=== PATIENT | male | born 1955 | race Caucasian/White ===

== ENCOUNTER 2016-05-01 12:05 | Inpatient (IN) | payer OTHER ==
[~2016-05-01] VITALS: Ht 167.6 cm; Wt 90.0 kg
[~2016-05-01 12:05] MED LIST: ASPI81TA21 PO; ATV/1 PO; Alfalfa PO; FISHOIL PO; HYDR1TAB2 PO; MULTTAB58 PO; ONDA4TAB7 SL; ROSU5TAB PO
[2016-05-01] MEDS ORDERED: SODIUM CHLORIDE 0.9% 1000ML 1,000 ML IV SCH (12:36)
[2016-05-01] MEDS ORDERED: LABETALOL HCL IV 5 MG/ML 20ML IV STA (12:36)
--- NOTE | 2016-05-01 12:43 | EMERGENCY ROOM VISIT NOTE ---
History Report prepared by Marly: Aquiles Queen Under the Supervision of: Dr. Rachel Sanchez M.D. First contact with patient: 12:33 Chief Complaint: CONFUSION Stated Complaint: CONFUSION History of Present Illness The patient is a 61 year old male who presents to the Emergency Room with complaints of acute confusion that occurred earlier this morning. The patient's confusion appears to mostly have resolved. The patient was at baseline when he woke up this morning. He exercised and ate breakfast as usual. After he got out of the shower this morning he became confused. He notes that he could not remember that his birthday was yesterday. The patient had some alcohol last night but not in excess. Friends of the patient that picked him up this morning noted to his that the patient appeared confused. The patient has a history of hypertension which is usually controlled with medication. The patient started 10 mg Lisinopril almost one year ago. The patient denies one-sided weakness or numbness, speech difficulty, facial drooping, trouble ambulating, headaches, chest pain, or shortness of breath. The patient has a history of migraines and notes that his symptoms are different. The patient follows up with Dr. Galvez (Family Medicine). He is not a smoker. He has a family history of stroke. Source of History: patient, spouse/significant other Onset: this morning Position: other (global) Quality: other (confused) Timing: resolved Associated Symptoms: No SOB, No chest pain, No headache, No numbness, No weakness Review of Systems See HPI for pertinent positives & negatives. A total of 10 systems reviewed and were otherwise negative. Past Medical & Surgical Medical Problems: (1) Altered mental status (2) History of malignant melanoma of skin (3) HTN (hypertension) (4) Hyperlipidemia (5) Hypertensive urgency (6) Kidney stone (7) Migraine Surgical Problems: (1) H/O colonoscopy (2) H/O melanoma excision Family History Stroke Social History Smoking Status: Never Smoker Marital Status: Housing Status: lives with family Occupation Status: employed Current/Historical Medications Scheduled Acetaminophen/Diphenhydramine (Tylenol Pm), 1 TAB PO HS [place] (Whitley), 1 TAB PO DAILY Allopurinol (Zyloprim), 1 TAB PO DAILY Aspirin Enteric Coated (Ecotrin Or Generic), 81 MG PO DAILY Cholecalciferol (Vitamin D), 1 TAB PO DAILY Fish Oil ([place]-3), 1 CAP PO DAILY Lisinopril (Lisinopril), 1 TAB PO DAILY Multiple Vitamin (Multivitamin), 1 TAB PO DAILY Rosuvastatin Calcium (Crestor), 10 MG PO Q2D Allergies Coded Allergies: No Known Allergies (Unverified , 02/04/12) Physical Exam Vital Signs Date Time Temp Pulse Resp B/P Pulse Ox O2 Delivery O2 Flow Rate FiO2 05/01/16 13:32 63 16 160/77 94 05/01/16 13:30 61 16 158/90 96 05/01/16 13:17 61 18 94 05/01/16 13:16 159/80 05/01/16 13:10 62 18 168/102 99 05/01/16 13:08 168/102 05/01/16 12:57 166/99 05/01/16 12:55 58 24 95 05/01/16 12:52 59 05/01/16 12:52 174/97 05/01/16 12:50 59 19 98 05/01/16 12:41 247/121 05/01/16 12:35 98 Room Air 05/01/16 12:08 36.4 99 20 231/132 98 Room Air Physical Exam Vital signs reviewed. General: Well-appearing male, in no significant distress. HEENT: No scleral icterus, PERRLA, neck supple. Atraumatic. Cardiovascular: Regular rate and rhythm, no extra sounds. Pulmonary: Clear to auscultation bilaterally, normal work of breathing. Abdomen: Soft, nontender, nondistended, positive bowel sounds. Musculoskeletal: Atraumatic, no peripheral edema. Neurologic: Patient awake alert and oriented x 3, full strength in all 4 extremities. Cranial nerves 2 through 12 grossly intact. Cerebellar exam intact. Skin: Warm, dry, no rash Medical Decision & Procedures ER Provider Diagnostic Interpretation: X-ray results as stated below per my interpretation and radiologist interpretation. Other radiology results as stated below per my review and radiologist interpretation: CHEST ONE VIEW PORTABLE CLINICAL HISTORY: CVS sx, HTN dyspnea COMPARISON STUDY: 02/03/2012 FINDINGS: The bones soft tissues and hemidiaphragms are normal. The cardiomediastinal silhouette is normal. The lungs are clear. The pulmonary vasculature is normal. IMPRESSION: Negative chest. Electronically signed by: Denis Montalvo M.D. 05/01/2016 1:01 PM Dictated Date/Time: 05/01/2016 1:[address] CT DOSE: 537.48 mGy.cm HISTORY: Mental status change Stroke TECHNIQUE: Multiaxial CT images of the head were performed without the use of intravenous contrast. Comparison: None. Findings: The paranasal sinuses and mastoid air cells are clear. The calvarium and skull base are intact. The ventricles and sulci are within normal limits. There is no mass, hematoma, midline shift, or acute infarct. Impression: No acute intracranial abnormality. Electronically signed by: Denis Montalvo M.D. 05/01/2016 1:13 PM Dictated Date/Time: 05/01/2016 1:12 PM Laboratory Results 05/01/16 12:30 Red Blood Count 4.69, Mean Corpuscular Volume 91.9, Mean Corpuscular Hemoglobin 32.8, Mean Corpuscular Hemoglobin Concent 35.7, Mean Platelet Volume 10.0, Neutrophils (%) (Auto) 54.9, Lymphocytes (%) (Auto) 35.8, Monocytes (%) (Auto) 7.6, Eosinophils (%) (Auto) 1.3, Basophils (%) (Auto) 0.4, Neutrophils # (Auto) 2.96, Lymphocytes # (Auto) 1.93, Monocytes # (Auto) 0.41, Eosinophils # (Auto) 0.07, Basophils # (Auto) 0.02 Test 05/01/16 12:30 05/01/16 12:45 05/01/16 12:52 White Blood Count 5.39 K/uL (4.8-10.8) Red Blood Count 4.69 M/uL (4.7-6.1) Hemoglobin 15.4 g/dL (14.0-18.0) Hematocrit 43.1 % (42-52) Mean Corpuscular Volume 91.9 fL (80-100) Mean Corpuscular Hemoglobin 32.8 pg (25-34) Mean Corpuscular Hemoglobin Concent 35.7 g/dl (32-36) Platelet Count 210 K/uL (130-400) Mean Platelet Volume 10.0 fL (7.4-10.4) Neutrophils (%) (Auto) 54.9 % Lymphocytes (%) (Auto) 35.8 % Monocytes (%) (Auto) 7.6 % Eosinophils (%) (Auto) 1.3 % Basophils (%) (Auto) 0.4 % Neutrophils # (Auto) 2.96 K/uL (1.4-6.5) Lymphocytes # (Auto) 1.93 K/uL (1.2-3.4) Monocytes # (Auto) 0.41 K/uL (0.11-0.59) Eosinophils # (Auto) 0.07 K/uL (0-0.5) Basophils # (Auto) 0.02 K/uL (0-0.2) RDW Standard Deviation 41.7 fL (36.4-46.3) RDW Coefficient of Variation 12.4 % (11.5-14.5) Immature Granulocyte % (Auto) 0.0 % Immature Granulocyte # (Auto) 0.00 K/uL (0.00-0.02) Prothrombin Time 10.4 SECONDS (9.0-12.0) Prothromb Time International Ratio 1.0 (0.9-1.1) Activated Partial Thromboplast Time 25.3 SECONDS (21.0-31.0) Partial Thromboplastin Ratio 1.0 Total Creatine Kinase 206 U/L (39-308) Creatine Kinase MB 3.9 ng/ml (0.5-3.6) Creatine Kinase MB Ratio 1.9 (0-3.0) Troponin I < 0.015 ng/ml (0-0.045) Urine Opiates Screen NEG (NEG) Urine Methadone, Qualitative NEG (NEG) Urine Barbiturates NEG (NEG) Urine Phencyclidine (PCP) Level NEG (NEG) Ur Amphetamine/Methamphetamine NEG (NEG) MDMA (Ecstasy) Screen NEG (NEG) Urine Benzodiazepines Screen NEG (NEG) Urine Cocaine Metabolite NEG (NEG) Urine Marijuana (THC) NEG (NEG) Bedside Prothrombin Time INR 1.0 (0.9-1.1) Bedside Glucose 108 mg/dl (70-99) Laboratory results per my review. Medications Administered Medications (Trade) Dose Ordered Sig/Tatianna Route Start Time Stop Time Status Last Admin Dose Admin Labetalol HCl 10 mg 10 mg NOW STAT IV 05/01/16 12:36 05/01/16 12:42 DC 05/01/16 12:49 10 MG Sodium Chloride (Nss 1000ml) 1,000 ml @ 75 mls/hr [id number] IV 05/01/16 12:36 05/01/16 14:59 DC 05/01/16 12:50 75 MLS/HR ECG Indication: altered mental status Rate (beats per minute): 66 Rhythm: normal sinus Findings: no acute ischemic change, no ectopy ED Course 1235: Past medical records reviewed. The patient was evaluated in room C2. A complete history and physical examination was performed. 1236: NSS 1000 ml @ 75 mls/hr, Normodyne 10 mg IV. 1332: Spoke with Karina Rodgers PA-C, [facility]. The patient will be evaluated. Medical Decision Differential diagnosis: Etiologies such as metabolic, infection, hypoglycemia, electrolyte abnormalities , cardiac sources, intracerebral event, toxicologic, neurologic, as well as others were entertained. This patient was evaluated and appeared to be in no significant distress. IV access was obtained and laboratory work was drawn. The patient was placed on the manager advanced and was found to be in a normal sinus rhythm. EKG was performed and reveals a normal sinus rhythm. There is no evidence of acute ischemia. Chest x-ray is clear. Head CT is clear. I suspect the patient's symptoms are related to a hypertensive urgency. He did respond well to 10 mg of IV labetalol. Given the patient's symptoms, it is in his best interest to be evaluated by the hospitalist service for further management. He will likely need a full stroke evaluation. Patient is aware of the plan and agrees. Consults Time Called: 1325 Consulting Physician: [facility]C, [facility] Returned Call: [phone]: Spoke with Karina Rodgers PA-C, [facility]. The patient will be evaluated Impression Primary Impression: Hypertensive urgency Scribe Attestation The scribe's documentation has been prepared under my direction and personally reviewed by me in its entirety. I confirm that the note above accurately reflects all work, treatment, procedures, and medical decision making performed by me. Departure Information Dispostion Being Evaluated By Hospitalist Prescriptions Lisinopril (Lisinopril) 40 Mg Tab 1 TAB PO DAILY for 30 Days, #30 TABS 2 Refills Prov: Alex Perry MD 05/02/16 Referrals Jose Galvez M.D. (PCP) Patient Instructions [facility]
[2016-05-01 12:53] LABS: BASO % 0.4 %; BASO ABS # 0.02 K/uL (0-0.2); COMPLETE YES; EOS % 1.3 %; HEMATOCRIT 43.1 % (42-52); LYMPH % 35.8 %; LYMPH ABS # 1.93 K/uL (1.2-3.4); MEAN CELL VOLUME 91.9 fL (80-100); MEAN CORPUSCULAR HEMOGLOBIN 32.8 pg (25-34); MEAN CORPUSCULAR HGB CONC 35.7 g/dl (32-36); MONO % 7.6 %; NEUT % 54.9 %; PLATELET COUNT 210 K/uL (130-400); RED BLOOD COUNT 4.69 M/uL (4.7-6.1); WHITE BLOOD COUNT 5.39 K/uL (4.8-10.8)
--- NOTE | 2016-05-01 13:02 | DIAGNOSTIC IMAGING REPORT ---
CHEST ONE VIEW PORTABLE CLINICAL HISTORY: CVS sx, HTN dyspnea COMPARISON STUDY: 02/03/2012 FINDINGS: The bones soft tissues and hemidiaphragms are normal. The cardiomediastinal silhouette is normal. The lungs are clear. The pulmonary vasculature is normal. IMPRESSION: Negative chest. Electronically signed by: Denis Montalvo M.D. 05/01/2016 1:01 PM Dictated Date/Time: 05/01/2016 1:01 PM
[2016-05-01 13:06] LABS: PROTHROMBIN TIME (PATIENT) 10.4 SECONDS (9.0-12.0)
[2016-05-01 13:13] LABS: BLOOD UREA NITROGEN 18 mg/dl (7-18); BUN/CREATININE RATIO 13.9 (10-20); CALCIUM 9.3 mg/dl (8.5-10.1); CARBON DIOXIDE 26 mmol/L (21-32); CHLORIDE 105 mmol/L (98-107); GLUCOSE 106 mg/dl (70-99); POTASSIUM 4.1 mmol/L (3.5-5.1); SODIUM 141 mmol/L (136-145)
--- NOTE | 2016-05-01 13:14 | DIAGNOSTIC IMAGING REPORT ---
HEAD CT NONCONTRAST CT DOSE: 537.48 mGy.cm HISTORY: Mental status change Stroke TECHNIQUE: Multiaxial CT images of the head were performed without the use of intravenous contrast. Comparison: None. Findings: The paranasal sinuses and mastoid air cells are clear. The calvarium and skull base are intact. The ventricles and sulci are within normal limits. There is no mass, hematoma, midline shift, or acute infarct. Impression: No acute intracranial abnormality. Electronically signed by: Denis Montalvo M.D. 05/01/2016 1:13 PM Dictated Date/Time: 05/01/2016 1:12 PM
[2016-05-01 13:18] LABS: CKMB/CK RATIO 1.9 (0-3.0)
[2016-05-01 13:19] LABS: BENZODIAZEPINE, URINE NEG (NEG); COCAINE,URINE NEG (NEG); PHENCYCLIDINE, URINE NEG (NEG)
[2016-05-01] MEDS ORDERED: LISI-461 PO (13:19)
[2016-05-01] MEDS ORDERED: OMEG10007 PO (13:19)
[2016-05-01] MEDS ORDERED: ALLO300T2 PO (13:19)
[2016-05-01 14:00] VITALS: O2SAT 95; Ht 167.6 cm; Wt 90.0 kg
[2016-05-01 14:17] VITALS: O2SAT 95
[2016-05-01] MEDS ORDERED: CHOL100010 PO (14:21)
[2016-05-01] MEDS ORDERED: SILD100T PO (14:21)
[2016-05-01] MEDS ORDERED: DIPH-437 PO (14:21)
[2016-05-01] MEDS ORDERED: ALFA250T PO (14:21)
[2016-05-01] MEDS ORDERED: CRS10 PO (14:21)
[2016-05-01 15:02] VITALS: BP 169/87; PULSE 58; TEMP 36.6; O2SAT 98
--- NOTE | 2016-05-01 15:05 | History and Physical ---
History & Physical Date & Time of Service: May 01, 2016 at 14:22 Chief Complaint: Confusion Primary Care Physician: Jose Galvez M.D. History of Present Illness Source: patient, clinic records This is a 61 year old male with PMH of hypertension, dyslipidemia, and other problems listed below who presents to the ED with episode of confusion. Patient states last night he had 3 drinks of alcohol instead of his usual 2 and woke up feeling normal this morning. He exercised at the gym and then took a shower and when he was getting out of the shower around 10 or 10:30 am he became confused which lasted 15-30 minutes. He describes the confusion as an "out of body experience" and states he did not remember it was his birthday yesterday until he looked at his phone and saw text messages. He states he could walk and speak normally during the episode. He could recognize his surroundings. He called his who was at an event. He then called a friend to bring him to the ER. The friend told him he sounded abnormal on the phone (unclear whether it was a speech abnormality or that he sounded confused). Symptoms are resolved now and he feels back to baseline. When patient arrived to the ER his blood pressure was as high as 240s systolic and 130s diastolic. Patient was given labetalol 10 mg IV and BP is currently improved to 160/95. He usually is compliant with lisinopril 10 mg which he has been taking for 9-10 months. He is not sure if he took the lisinopril or aspirin this morning because he usually takes them after showering, but today was confused. He states his plans to check his pill box. He has not checked his BP recently. Last clinic visit was May 2015. 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 He reports low sodium diet and exercises daily. He is not on any OTC meds which would affect his BP. He has not been in any pain. He denies recent head trauma, headache, dizziness, syncope, diplopia, blurry vision, speech difficulty, focal weakness or numbness, chest pain, SOB. Denies prior similar episode. Denies hx of TIA, CVA, or seizure. Past Medical/Surgical History Medical Problems: (1) History of malignant melanoma of skin Status: Chronic (2) History of renal stone Status: Chronic (3) HTN (hypertension) Status: Chronic (4) Hyperlipidemia Status: Chronic (5) Kidney stone Status: Chronic (6) Migraine Status: Resolved Surgical Problems: (1) H/O colonoscopy Permanent Comment: 05/27/15 normal Status: Chronic (2) H/O melanoma excision Status: Chronic Family History FH: CAD (coronary artery disease) FATHER FH: cancer FATHER (bladder CA) Hypertension FATHER BROTHER Stroke Social History Smoking Status: Never Smoker Alcohol Use: typically 2 drinks daily. had 3 drinks yesterday on his birthday. Drug Use: none Marital Status: Housing status: lives with family, lives with significant other Occupational Status: employed Immunizations History of Influenza Vaccine: No History of Tetanus Vaccine?: Yes History of Pneumococcal: No History of Hepatitis B Vaccine: Yes Multi-Drug Resistant Organisms History of MDRO: No Allergies Coded Allergies: No Known Allergies (Unverified , 02/04/12) Home Medications Scheduled Acetaminophen/Diphenhydramine (Tylenol Pm), 1 TAB PO HS [place] ([place]), 1 TAB PO DAILY Allopurinol (Zyloprim), 1 TAB PO DAILY Aspirin Enteric Coated (Ecotrin Or Generic), 81 MG PO DAILY Cholecalciferol (Vitamin D), 1 TAB PO DAILY Fish Oil ([place]-3), 1 CAP PO DAILY Lisinopril (Zestril), 10 MG PO DAILY Multiple Vitamin (Multivitamin), 1 TAB PO DAILY Rosuvastatin Calcium (Crestor), 10 MG PO Q2D Scheduled PRN Sildenafil Citrate (Viagra), 50 MG PO UD PRN for intercourse Review of Systems Constitutional: No chills, No fever Eyes: No diplopia, No worsening of vision ENT: No nasal symptoms Respiratory: No cough, No shortness of breath Cardiovascular: No chest pain, No edema Abdomen: No diarrhea, No nausea, No vomiting Musculoskeletal: No calf pain Genitourinary - Male: No dysuria, No urinary frequency Neurologic: + memory loss, No numbness/tingling, No weakness Psychiatric: + anxiety Integumentary: No new/changing skin lesions Physical Exam Vital Signs Date Time Temp Pulse Resp B/P Pulse Ox O2 Delivery O2 Flow Rate FiO2 05/01/16 13:30 61 16 158/90 96 05/01/16 13:10 62 18 168/102 99 05/01/16 12:57 166/99 05/01/16 12:55 58 24 95 05/01/16 12:52 59 05/01/16 12:52 174/97 05/01/16 12:50 59 19 98 05/01/16 12:41 247/121 05/01/16 12:35 98 Room Air 05/01/16 12:08 36.4 99 20 231/132 98 Room Air General Appearance: WD/WN, no apparent distress, + pertinent finding (pleasant alert 61 year old male, no distress) Head: normocephalic, atraumatic Eyes: normal inspection, PERRL, EOMI ENT: hearing grossly normal, pharynx normal Neck: supple, no carotid bruits, trachea midline Respiratory/Chest: lungs clear, normal breath sounds, no respiratory distress, no accessory muscle use Cardiovascular: regular rate, rhythm, no murmur Abdomen/GI: normal bowel sounds, non tender, soft Extremities/Musculoskelatal: no calf tenderness, no pedal edema 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, no motor/sensory deficits, alert, normal mood/affect, oriented x 3, + pertinent finding (finger to nose intact bilaterally) Skin: normal color, warm/dry Diagnostics Laboratory Results Results Past 24 Hours Test 05/01/16 12:30 05/01/16 12:45 05/01/16 12:52 Range/Units White Blood Count 5.39 4.8-10.8 K/uL Red Blood Count 4.69 4.7-6.1 M/uL Hemoglobin 15.4 14.0-18.0 g/dL Hematocrit 43.1 42-52 % Mean Corpuscular Volume 91.9 80-100 fL Mean Corpuscular Hemoglobin 32.8 25-34 pg Mean Corpuscular Hemoglobin Concent 35.7 32-36 g/dl Platelet Count 210 130-400 K/uL Mean Platelet Volume 10.0 7.4-10.4 fL Neutrophils (%) (Auto) 54.9 % Lymphocytes (%) (Auto) 35.8 % Monocytes (%) (Auto) 7.6 % Eosinophils (%) (Auto) 1.3 % Basophils (%) (Auto) 0.4 % Neutrophils # (Auto) 2.96 1.4-6.5 K/uL Lymphocytes # (Auto) 1.93 1.2-3.4 K/uL Monocytes # (Auto) 0.41 0.11-0.59 K/uL Eosinophils # (Auto) 0.07 0-0.5 K/uL Basophils # (Auto) 0.02 0-0.2 K/uL RDW Standard Deviation 41.7 36.4-46.3 fL RDW Coefficient of Variation 12.4 11.5-14.5 % Immature Granulocyte % (Auto) 0.0 % Immature Granulocyte # (Auto) 0.00 0.00-0.02 K/uL Prothrombin Time 10.4 9.0-12.0 SECONDS Prothromb Time International Ratio 1.0 0.9-1.1 Activated Partial Thromboplast Time 25.3 21.0-31.0 SECONDS Partial Thromboplastin Ratio 1.0 Sodium Level 141 136-145 mmol/L Potassium Level 4.1 3.5-5.1 mmol/L Chloride Level 105 98-107 mmol/L Carbon Dioxide Level 26 21-32 mmol/L Anion Gap 10.0 3-11 mmol/L Blood Urea Nitrogen 18 7-18 mg/dl Creatinine 1.30 0.60-1.40 mg/dl Est Creatinine Clear Calc Drug Dose 61.1 ml/min Estimated GFR () 67.3 Estimated GFR (Non- 58.1 BUN/Creatinine Ratio 13.9 10-20 Random Glucose 106 70-99 mg/dl Calcium Level 9.3 8.5-10.1 mg/dl Total Creatine Kinase 206 39-308 U/L Creatine Kinase MB 3.9 0.5-3.6 ng/ml Creatine Kinase MB Ratio 1.9 0-3.0 Troponin I < 0.015 0-0.045 ng/ml Urine Opiates Screen NEG NEG Urine Methadone, Qualitative NEG NEG Urine Barbiturates NEG NEG Urine Phencyclidine (PCP) Level NEG NEG Ur Amphetamine/Methamphetamine NEG NEG MDMA (Ecstasy) Screen NEG NEG Urine Benzodiazepines Screen NEG NEG Urine Cocaine Metabolite NEG NEG Urine Marijuana (THC) NEG NEG Bedside Prothrombin Time INR 1.0 0.9-1.1 Bedside Glucose 108 70-99 mg/dl Diagnostic Radiology HEAD CT NONCONTRAST CT DOSE: 537.48 mGy.cm HISTORY: Mental status change Stroke TECHNIQUE: Multiaxial CT images of the head were performed without the use of intravenous contrast. Comparison: None. Findings: The paranasal sinuses and mastoid air cells are clear. The calvarium and skull base are intact. The ventricles and sulci are within normal limits. There is no mass, hematoma, midline shift, or acute infarct. Impression: No acute intracranial abnormality. EKG NSR, 61 bpm, nonspecific t wave flattening in III, no ST abnormalities Impression Assessment and Plan EPISODE OF ALTERED MENTAL STATUS May be due to encephalopathy from hypertensive urgency; TIA also considered No metabolic derangements on labs; tox screen negative CT head negative; will obtain MRI head to rule out CVA although this is considered unlikely given no focal neurologic signs/ symptoms Neuro checks Continue aspirin and statin Blood pressure management as noted below Consult neurology HYPERTENSIVE URGENCY BP significantly elevated to 240s systolic and 130s diastolic in ER -> received 10 mg IV labetalol; BP now 160/95 Will avoid excessive lowering within a short time period On lisinopril 10 mg daily at home Unclear baseline BP; no recent clinic visits Increase lisinopril to 40 mg QAM DYSLIPIDEMIA Continue statin- on Crestor 10 mg q2d- decreased due to prior arthralgias on higher dose Check fasting lipid panel in am DVT PROPHYLAXIS Lovenox SQ CODE STATUS Full code per my discussion with the patient DISPOSITION Lives with Follows with Dr. Galvez for primary care Patient seen in collaboration with Dr. Christianson. Please see her addendum. I have seen, examined and discussed this patient with Aubrie Rodgers and I agree with the above note. Patient with episode of self-resolving confusion this am. Vitals notable for elevated blood pressure. PE: General- awake; alert; NAD Eyes- EOMI; no scleral icterus ENT- clear OC/OP Neck- no stridor; trachea midline Lungs- CTA bilaterally; no wheezes/crackles Heart- RRR; no m/r/g Abdomen- soft; NTND; nBS Back- no gross abnormalities Extremities- no c/c/e; no deformity Neuro- no focal deficits; cn ii-xii grossly intact; strength 5/5 bilateral UE and LE; sensation to light touch intact and equal throughout; no pronator drift ; cerebellar testing intact Skin- no appreciable rash or bruise Labs, imaging and EKG reviewed. Encephalopathy: Patient presented with self limited episode of confusion this am. Possibly related to hypertensive urgency vs TIA. CT head negative. MRI brain pending. Neurology consulted. Utox negative. No metabolic abnormalities on labs. No e/o infection. Hypertensive urgency: Elevated BP on presentation. Will increase lisinopril to 40mg daily. PRN hydralazine. Agree with remainder of plan as outlined above. VTE Prophylaxis VTE Risk Assessment Done? Y/N: Yes Risk Level: Moderate
[2016-05-01] MEDS ORDERED: ROSUVASTATIN CALCIUM 10 MG TAB PO SCH (16:00)
[2016-05-01] MEDS ORDERED: HydrALAZINE HCL 20 MG/ML VIAL IV. PRN (17:15)
[2016-05-01] MEDS ORDERED: ONDANSETRON INJ 2 MG/ML 2 ML VIAL IV PRN (17:30)
[2016-05-01] MEDS ORDERED: ACETAMINOPHEN 325 MG TAB PO PRN (17:30)
[2016-05-01] MEDS: ENOXAPARIN 40 MG/0.4 ML SYR SQ SCH ×2 (17:45→17:46)
[2016-05-01 18:59] VITALS: BP 161/92; PULSE 57; TEMP 36.7; O2SAT 97
[2016-05-01] MEDS ORDERED: ZOLPIDEM TARTRATE 5 MG TAB PO PRN (20:45)
--- NOTE | 2016-05-01 23:04 | DIAGNOSTIC IMAGING REPORT ---
Brain MRI WITHOUT CONTRAST HISTORY: Mental status change r/o intracranial abnormality TECHNIQUE: Multiplanar multisequence MRI of the brain was performed without the use of contrast. COMPARISON STUDY: CT same date FINDINGS: No areas are seen to suggest restricted diffusion. No acute infarct. Several small foci of increased signal within the periventricular deep white matter regions of the frontal regions. This consistent with chronic small vessel change of aging. Ventricular system is midline. Sella and parasellar regions are unremarkable. IMPRESSION: 1. No evidence for an acute ischemic insult. 2. Mild chronic small vessel change of aging. 3. Study is otherwise negative Electronically signed by: Denis Montalvo M.D. 05/01/2016 11:02 PM Dictated Date/Time: 05/01/2016 11:00 PM
[2016-05-01 23:47] VITALS: BP 193/84; PULSE 55; TEMP 36.5; O2SAT 94
[2016-05-02 04:33] VITALS: BP 160/92; PULSE 52; TEMP 36.5; O2SAT 96
[2016-05-02 07:14] LABS: BUN/CREATININE RATIO 17.5 (10-20); CALCIUM 8.7 mg/dl (8.5-10.1); CREATININE 1.1 mg/dl (0.60-1.40); POTASSIUM 3.9 mmol/L (3.5-5.1)
[2016-05-02 07:17] VITALS: BP 132/79; PULSE 51; TEMP 36.4; O2SAT 96
[2016-05-02 07:17] LABS: CHOLESTEROL/HDL RATIO 5.2
--- NOTE | 2016-05-02 08:49 | Progress Note ---
Medicine Progress Note Date & Time of Visit: May 02, 2016 at 08:42. Subjective patient seen resting in bed, comfortable states he feels improved today no recurrence of confusion denies any focal neuro symptoms denies chest pain, dyspnea, palpitations, nausea/vomiting runs 3-4 miles every day with no symptoms no other symptoms Objective Last 8 Hrs Date Time Temp Pulse Resp B/P Pulse Ox O2 Delivery O2 Flow Rate FiO2 05/02/16 08:00 Room Air 05/02/16 07:17 36.4 51 16 132/79 96 Room Air 05/02/16 04:33 36.5 52 18 160/92 96 Room Air 05/02/16 04:00 Room Air Physical Exam: General- oriented x 3, not in distress, speaks in sentences with no effort Head- atraumatic Eyes- EOMI, anicteric ENT- oropharynx clear Neck- supple, no JVD, no adenopathy, no thyromegaly Lungs- clear to auscultation bilaterally Heart- normal rate, regular rhythm; no murmurs Abdomen- normal bowel sounds, soft, nontender Extremities- no pretibial edema, no calf tenderness; peripheral pulses intact Neuro- alert, oriented x 3; EOMI; no facial palsy; no dysarthria; motor 5/5 bilaterally; sensation 100% on all extremities Skin- warm & dry Laboratory Results: Last 24 Hours Test 05/01/16 12:30 05/01/16 12:45 05/01/16 12:52 05/02/16 06:28 White Blood Count 5.39 K/uL Red Blood Count 4.69 M/uL Hemoglobin 15.4 g/dL Hematocrit 43.1 % Mean Corpuscular Volume 91.9 fL Mean Corpuscular Hemoglobin 32.8 pg Mean Corpuscular Hemoglobin Concent 35.7 g/dl Platelet Count 210 K/uL Mean Platelet Volume 10.0 fL Neutrophils (%) (Auto) 54.9 % Lymphocytes (%) (Auto) 35.8 % Monocytes (%) (Auto) 7.6 % Eosinophils (%) (Auto) 1.3 % Basophils (%) (Auto) 0.4 % Neutrophils # (Auto) 2.96 K/uL Lymphocytes # (Auto) 1.93 K/uL Monocytes # (Auto) 0.41 K/uL Eosinophils # (Auto) 0.07 K/uL Basophils # (Auto) 0.02 K/uL RDW Standard Deviation 41.7 fL RDW Coefficient of Variation 12.4 % Immature Granulocyte % (Auto) 0.0 % Immature Granulocyte # (Auto) 0.00 K/uL Prothrombin Time 10.4 SECONDS Prothromb Time International Ratio 1.0 Activated Partial Thromboplast Time 25.3 SECONDS Partial Thromboplastin Ratio 1.0 Sodium Level 141 mmol/L 143 mmol/L Potassium Level 4.1 mmol/L 3.9 mmol/L Chloride Level 105 mmol/L 108 mmol/L Carbon Dioxide Level 26 mmol/L 25 mmol/L Anion Gap 10.0 mmol/L 10.0 mmol/L Blood Urea Nitrogen 18 mg/dl 19 mg/dl Creatinine 1.30 mg/dl 1.10 mg/dl Est Creatinine Clear Calc Drug Dose 61.1 ml/min 72.2 ml/min Estimated GFR () 67.3 82.4 Estimated GFR (Non- 58.1 71.1 BUN/Creatinine Ratio 13.9 17.5 Random Glucose 106 mg/dl 109 mg/dl Calcium Level 9.3 mg/dl 8.7 mg/dl Total Creatine Kinase 206 U/L Creatine Kinase MB 3.9 ng/ml Creatine Kinase MB Ratio 1.9 Troponin I < 0.015 ng/ml Urine Opiates Screen NEG Urine Methadone, Qualitative NEG Urine Barbiturates NEG Urine Phencyclidine (PCP) Level NEG Ur Amphetamine/Methamphetamine NEG MDMA (Ecstasy) Screen NEG Urine Benzodiazepines Screen NEG Urine Cocaine Metabolite NEG Urine Marijuana (THC) NEG Bedside Prothrombin Time INR 1.0 Bedside Glucose 108 mg/dl Triglycerides Level 202 mg/dl Cholesterol Level 234 mg/dl HDL Cholesterol 45 mg/dl LDL Cholesterol, Calculated 149 mg/dl VLDL Cholesterol, Calculated 40 mg/dl Cholesterol/HDL Ratio 5.2 Assessment & Plan EPISODE OF ALTERED MENTAL STATUS May be due to encephalopathy from hypertensive urgency; Possible TIA - lasted for about 15-20 minutes at home - management of hypertension as noted below - MRI brain: negative echo: pending - evaluated by and discussed with Dr. Madrigal likely related to hypertensive urgency - will increase Lisinopril to 40mg po daily patient would like to be discharged today advised to obtain BP machine at home and call PCP if syst BP > 160, or if BP < 100, or if symptomatic continue Aspirin ff up with PCP in 3-5 days HYPERTENSIVE URGENCY BP significantly elevated to 240s systolic and 130s diastolic in ER , at that time confusion has already resolved,-> received 10 mg IV labetalol; BP now 160/ 95 - BP improving systolic bp 155 - management as noted above DYSLIPIDEMIA Continue statin- on Crestor 10 mg q2d- decreased due to prior arthralgias on higher dose TG 202 LDL 149 HDL 45 - monitor as outpatient STRONG FAMILY HISTORY OF CAD - denies cardiac symptoms, anginal symptoms runs 3-4 miles a day with no symptoms - outpatient stress test per PCP DVT PROPHYLAXIS Lovenox SQ given CODE STATUS Full code DISPOSITION d/c home today ff up with PCP in 3-5 days Current Inpatient Medications: Current Inpatient Medications Medications (Trade) Dose Ordered Sig/[place] Route Start Time Stop Time Status Last Admin Dose Admin Allopurinol (Zyloprim Tab) 300 mg DAILY PO 05/02/16 09:00 06/01/16 08:59 Aspirin (Ecotrin Tab) 81 mg DAILY PO 05/02/16 09:00 06/01/16 08:59 Fish Oil ([place]-3 (Purified Fish Oil) Cap) 1 gm DAILY PO 05/02/16 09:00 06/01/16 08:59 Rosuvastatin Calcium (Crestor Tab) 10 mg Q2D@1600 PO 05/01/16 16:00 05/31/16 15:59 05/01/16 16:01 10 MG Multivitamins (Multivitamin Tab) 1 tab DAILY PO 05/02/16 09:00 06/01/16 08:59 Cholecalciferol (Vitamin D Tab) 1,000 inter.unit DAILY PO 05/02/16 09:00 06/01/16 08:59 Hydralazine HCl (HydrALAZINE INJ) 5 mg Q6 PRN IV. 05/01/16 17:15 05/31/16 17:14 Enoxaparin Sodium (Lovenox Inj) 40 mg Q24H SQ 05/01/16 18:00 05/31/16 17:59 Acetaminophen (Tylenol Tab) 650 mg Q4H PRN PO 05/01/16 17:30 05/31/16 17:29 Ondansetron HCl (Zofran Inj) 4 mg Q6H PRN IV 05/01/16 17:30 05/31/16 17:29 Zolpidem Tartrate (Ambien Tab) 5 mg HS PRN PO 05/01/16 20:45 05/31/16 20:44 Lisinopril (Zestril Tab) 20 mg DAILY PO 05/02/16 09:00 06/01/16 08:59 UNV
[2016-05-02] MEDS ORDERED: ASPIRIN 81 MG ECTAB PO SCH (09:00)
[2016-05-02] MEDS ORDERED: MULTIVITAMIN TAB PO SCH (09:00)
[2016-05-02] MEDS ORDERED: ALLOPURINOL 300 MG TAB PO SCH (09:00)
[2016-05-02] MEDS ORDERED: OMEGA-3 (PURIFIED FISH OIL) 1 GM CAP PO SCH (09:00)
[2016-05-02] MEDS ORDERED: CHOLECALCIFEROL 1000 INTER.UNIT TAB PO SCH (09:00)
[2016-05-02] MEDS ORDERED: LISINOPRIL 10 MG TAB PO SCH ×2 (09:00)
[2016-05-02 11:46] VITALS: BP 156/93; PULSE 54; TEMP 36.4; O2SAT 94
[2016-05-02 11:51] VITALS: BP 156/93; PULSE 54; TEMP 36.4; O2SAT 94
[2016-05-02] MEDS ORDERED: LSN40 PO (12:49)
--- NOTE | 2016-05-02 12:58 | Discharge Instructions ---
Discharge Instructions Date of Service May 02, 2016. Admission Reason for Admission: Altered Mental Status, Hypertensive Urgency Discharge Discharge Diagnosis / Problem: ALTERED MENTAL STATUS, HYPERTENSIVE URGENCY Discharge Goals Goal(s): Diagnostic testing, Therapeutic intervention Activity Recommendations Activity Limitations: as noted below (NO EXERCISE, LIFTING, HEAVY EXERTION UNTIL RE-EVALUATED BY PRIMARY CARE PHYSICIAN ) . Instructions / Follow-Up Instructions / Follow-Up PLEASE REVIEW YOUR NEW MEDICATION AND FOLLOW INSTRUCTIONS CAREFULLY. RECORD YOUR BLOOD PRESSURE IN THE MORNING AND EVENING. BRING THE RECORD TO YOUR NEXT PRIMARY CARE PHYSICIAN VISIT. CALL YOUR PRIMARY CARE PHYSICIAN IF THE TOP NUMBER (SYSTOLIC BLOOD PRESSURE) IS PERSISTENTLY 160 OR ABOVE. DO NOT TAKE LISINOPRIL IF THE TOP NUMBER (SYSTOLIC BLOOD PRESSURE) IS 100 OR BELOW. CALL YOUR DOCTOR. CALL 911 IF WITH RECURRENCE OF SYMPTOMS, CHEST PAIN, SHORTNESS OF BREATH, FOCAL WEAKNESS OR NUMBNESS. FOLLOW UP WITH DR. MURO THIS WEEK (CLINIC WILL BE CALLING YOU WITH APPOINTMENT DATE). Current Hospital Diet Patient's current hospital diet: AHA Diet (Heart Healthy) Discharge Diet Recommended Diet: AHA Diet (Heart Healthy) Pending Studies Studies pending at discharge: yes List of pending studies: BLOOD PRESSURE CHECK Laboratory Results Lipid Panel Test 05/02/16 06:28 Range/Units Triglycerides Level 202 H 0-150 mg/dl Cholesterol Level 234 H 0-200 mg/dl HDL Cholesterol 45 mg/dl Cholesterol/HDL Ratio 5.2 LDL Cholesterol, Calculated 149 mg/dl Medical Emergencies . Who to Call and When: Medical Emergencies: If at any time you feel your situation is an emergency, please call 911 immediately. . Non-Emergent Contact Non-Emergency issues call your: Primary Care Provider Call Non-Emergent contact if: you have a fever, you have any medication questions .CALL YOUR PRIMARY CARE PHYSICIAN IF THE TOP NUMBER (SYSTOLIC BLOOD PRESSURE) IS PERSISTENTLY 160 OR ABOVE. . "Provider Documentation" section prepared by Alex Perry. VTE Core Measure Inpt VTE Proph given/why not?: Enoxaparin (Lovenox)SQ
--- NOTE | 2016-05-02 13:07 | Discharge Summary ---
Discharge Summary Date of Service May 02, 2016. Discharge Summary Admission Date: May 01, 2016 at 13:42 Discharge Date: May 02, 2016 Discharge Disposition: Home Principal Diagnosis: EPISODE OF ALTERED MENTAL STATUS May be due to encephalopathy from hypertensive urgency Secondary Diagnoses/Problems: Please refer to hospital course below. Procedures: Brain MRI WITHOUT CONTRAST HISTORY: Mental status change r/o intracranial abnormality TECHNIQUE: Multiplanar multisequence MRI of the brain was performed without the use of contrast. COMPARISON STUDY: CT same date FINDINGS: No areas are seen to suggest restricted diffusion. No acute infarct. Several small foci of increased signal within the periventricular deep white matter regions of the frontal regions. This consistent with chronic small vessel change of aging. Ventricular system is midline. Sella and parasellar regions are unremarkable. IMPRESSION: 1. No evidence for an acute ischemic insult. 2. Mild chronic small vessel change of aging. 3. Study is otherwise negative Consultations: Neurologist Dr. Madrigal Pending Studies/Follow-Up: Please monitor BP (Lisinopril increased to 40mg daily from 10mg daily); may need outpatient stress test (family history of CAD). Medication Reconciliation New Medications: Lisinopril (Lisinopril) 40 Mg Tab 1 TAB PO DAILY for 30 Days, #30 TABS 2 Refills Continued Medications: Acetaminophen/Diphenhydramine (Tylenol Pm) 500 Mg/25 Mg Tab 1 TAB PO HS, TAB [place]) Unknown Strength Tab 1 TAB PO DAILY Allopurinol (Zyloprim) 300 Mg Tab 1 TAB PO DAILY Aspirin Enteric Coated (Ecotrin Or Generic) 81 Mg Tab 81 MG PO DAILY, TAB Cholecalciferol (Vitamin D) Unknown Strength Tab 1 TAB PO DAILY Fish Oil ([place]-3) 1 Ea Cap 1 CAP PO DAILY Multiple Vitamin (Multivitamin) 1 Tab Tab 1 TAB PO DAILY, TAB Rosuvastatin Calcium (Crestor) 10 Mg Tab 10 MG PO Q2D Sildenafil Citrate (Viagra) 100 Mg Tab 50 MG PO UD PRN for intercourse, #6 TAB 11 Refills Discontinued Medications: Lisinopril (Zestril) 10 Mg Tab 10 MG PO DAILY Admission Information HPI (per Admitting provider): This is a 61 year old male with PMH of hypertension, dyslipidemia, and other problems listed below who presents to the ED with episode of confusion. Patient states last night he had 3 drinks of alcohol instead of his usual 2 and woke up feeling normal this morning. He exercised at the gym and then took a shower and when he was getting out of the shower around 10 or 10:30 am he became confused which lasted 15-30 minutes. He describes the confusion as an "out of body experience" and states he did not remember it was his birthday yesterday until he looked at his phone and saw text messages. He states he could walk and speak normally during the episode. He could recognize his surroundings. He called his who was at an event. He then called a friend to bring him to the ER. The friend told him he sounded abnormal on the phone (unclear whether it was a speech abnormality or that he sounded confused). Symptoms are resolved now and he feels back to baseline. When patient arrived to the ER his blood pressure was as high as 240s systolic and 130s diastolic. Patient was given labetalol 10 mg IV and BP is currently improved to 160/95. He usually is compliant with lisinopril 10 mg which he has been taking for 9-10 months. He is not sure if he took the lisinopril or aspirin this morning because he usually takes them after showering, but today was confused. He states his plans to check his pill box. He has not checked his BP recently. Last clinic visit was May 2015. 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 He reports low sodium diet and exercises daily. He is not on any OTC meds which would affect his BP. He has not been in any pain. He denies recent head trauma, headache, dizziness, syncope, diplopia, blurry vision, speech difficulty, focal weakness or numbness, chest pain, SOB. Denies prior similar episode. Denies hx of TIA, CVA, or seizure. 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 Madrigal likely related to hypertensive urgency - no recurrence of symptoms back to baseline as per patient cleared for discharge by Neurology - increase Lisinopril to 40mg po daily patient would like to be discharged advised to obtain BP machine at home and call PCP if syst BP > 160, do not take Lisinopril if BP < 100, or if symptomatic continue Aspirin 81mg po daily ff up with PCP in 3-5 days - monitor BP HYPERTENSIVE URGENCY BP significantly elevated to 240s systolic and 130s diastolic in ER , at that time confusion has already resolved,-> received 10 mg IV labetalol; BP now 160/ 95 - BP improving systolic bp 155 - management as noted above DYSLIPIDEMIA - Continue statin- on Crestor 10 mg q2d- decreased due to prior arthralgias on higher dose TG 202 LDL 149 HDL 45 - monitor as outpatient STRONG FAMILY HISTORY OF CAD - denies cardiac symptoms, anginal symptoms runs 3-4 miles a day with no symptoms - outpatient stress test per PCP DVT PROPHYLAXIS Lovenox SQ given DISPOSITION d/c home ff up with PCP in 3-5 days Total time spent on discharge = 45 minutes This includes examination of the patient, discharge planning, medication reconciliation, and communication with other providers. Discharge Instructions Discharge Instructions Date of Service May 02, 2016. Admission Reason for Admission: Altered Mental Status, Hypertensive Urgency Discharge Discharge Diagnosis / Problem: ALTERED MENTAL STATUS, HYPERTENSIVE URGENCY Discharge Goals Goal(s): Diagnostic testing, Therapeutic intervention Activity Recommendations Activity Limitations: as noted below (NO EXERCISE, LIFTING, HEAVY EXERTION UNTIL RE-EVALUATED BY PRIMARY CARE PHYSICIAN ) . Instructions / Follow-Up Instructions / Follow-Up PLEASE REVIEW YOUR NEW MEDICATION AND FOLLOW INSTRUCTIONS CAREFULLY. RECORD YOUR BLOOD PRESSURE IN THE MORNING AND EVENING. BRING THE RECORD TO YOUR NEXT PRIMARY CARE PHYSICIAN VISIT. CALL YOUR PRIMARY CARE PHYSICIAN IF THE TOP NUMBER (SYSTOLIC BLOOD PRESSURE) IS PERSISTENTLY 160 OR ABOVE. DO NOT TAKE LISINOPRIL IF THE TOP NUMBER (SYSTOLIC BLOOD PRESSURE) IS 100 OR BELOW. CALL YOUR DOCTOR. CALL 911 IF WITH RECURRENCE OF SYMPTOMS, CHEST PAIN, SHORTNESS OF BREATH, FOCAL WEAKNESS OR NUMBNESS. FOLLOW UP WITH DR. MURO THIS WEEK (CLINIC WILL BE CALLING YOU WITH APPOINTMENT DATE). Current Hospital Diet Patient's current hospital diet: AHA Diet (Heart Healthy) Discharge Diet Recommended Diet: AHA Diet (Heart Healthy) Pending Studies Studies pending at discharge: yes List of pending studies: BLOOD PRESSURE CHECK Laboratory Results Lipid Panel Test 05/02/16 06:28 Range/Units Triglycerides Level 202 H 0-150 mg/dl Cholesterol Level 234 H 0-200 mg/dl HDL Cholesterol 45 mg/dl Cholesterol/HDL Ratio 5.2 LDL Cholesterol, Calculated 149 mg/dl Medical Emergencies . Who to Call and When: Medical Emergencies: If at any time you feel your situation is an emergency, please call 911 immediately. . Non-Emergent Contact Non-Emergency issues call your: Primary Care Provider Call Non-Emergent contact if: you have a fever, you have any medication questions .CALL YOUR PRIMARY CARE PHYSICIAN IF THE TOP NUMBER (SYSTOLIC BLOOD PRESSURE) IS PERSISTENTLY 160 OR ABOVE. . "Provider Documentation" section prepared by Alex Perry. VTE Core Measure Inpt VTE Proph given/why not?: Enoxaparin (Lovenox)SQ
[2016-05-02] MEDS ORDERED: LISINOPRIL 20 MG TAB PO ONE (13:15)
--- NOTE | 2016-05-02 15:03 | CONSULTATION REPORT ---
DATE OF CONSULTATION: 05/02/[address] Perry. Dewey Alanis is 61 years old. He is known to Dr. Jose Galvez. He has past history of hypertension developing over the past several years, dyslipidemia and history of some renal calculi and low frequency migraines with visual aura, in addition to some low frequency ice pick like headaches as well. There is a history of malignant melanoma of the skin post resection without recurrence. Surgically, he has had colonoscopy and a melanoma excision. He is otherwise in good health. 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 He remains physically active, he is going to the gym, running everyday and yesterday had a period of minor disorientation after return home from his workup. There was no headache and zahra have developed subsequently. He had some memory issues only, in terms of the fact that he had forgotten that his birthday was the day before and was little surprised that people were sending him birthday greetings by his cellphone. He called his , was brought to the Emergency Room. He was noted to have a marked elevation of his blood pressure to about 240/130, which came down very quickly with appropriate treatment but is still in a mildly hypertensive range. His confusion cleared within 20 minutes. He never had a headache. He had no other neurologic symptoms. Imaging studies including an MRI, etc. have all shown nothing acute and only a few high T2 intensity signals in the deep cortical white matter, not inconsistent with his age and underlying risk factors and possibly reflective of his migraines. FAMILY HISTORY: Positive for coronary artery disease in his father, cancer in his father involving the bladder and hypertension in his father and brother who have both had strokes apparently. SOCIAL HISTORY: Reveals him to be a never smoker. He drinks about 2 alcoholic beverages a day. He is , lives with his family. 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 Immunizations, etc. are up-to-date. ALLERGIES: He has no known drug allergies. HOME MEDICATIONS: Include Tylenol PM as needed, alfalfa, allopurinol, aspirin 81 mg a day, cholecalciferol, vitamin D, lisinopril 10 mg daily, multiple vitamins, and Crestor. REVIEW OF SYSTEMS: Recently has revealed no constitutional issues. No problems referable to head, eyes, ears, nose and throat, cardiovascular, pulmonary, gastrointestinal, genitourinary, or musculoskeletal systems. Neurologically, with the exception of transient confusion yesterday which has now cleared, all that he has been having is the migraine headache with visual aura and occasional ice pick like headaches with stabbing sensation in his orbits, again at low frequency. PHYSICAL EXAMINATION: VITAL SIGNS: On admission, after the initial blood pressure surge, revealed pressures running about 168/102. The initial pressure was I believe 247/121 with some diastolics running out to 132. O2 saturations were 96%, pulse was 61, respirations 16. HEENT: There were no deformities on examination of the head, ears, eyes, nose, and throat. LUNGS: Clear. HEART: Had a regular rhythm. No murmurs were appreciated. ABDOMEN: Soft, nontender. EXTREMITIES: Were free of edema. NEUROLOGIC: Today, neurologically he is absolutely normal with intact mental status. Normal extraocular movements. Normal station, gait and coordination. No tremor, tics or choreiform activity. Excellent strength, no atrophy, no fasciculations. Normal reflex and normal sensation. I reviewed his imaging studies and the reports and at this point, I am really not sure this was not a hypertensive mediated vasospastic phenomenon which cleared with no evidence for completed infarction or evidence for posterior reversible encephalopathy syndrome which can occur. I would get his blood pressure obviously controlled. Apparently, according to Dr. Perry, it has come down very nicely and he needs to continue his aspirin, follow up with his primary care physician and we would be happy to see him neurologically again if these symptoms recur but for now, without evidence for an infarct and with normal MRA of the intracranial circulation, I do not think neurology has much more to offer. DAINA
== END 2016-05-02 13:34 | disposition home or self-care (01) | DRG 305 ==
LOC: ENRESERVTM → ENRESERVDT → C.EDB 12:06 → C.MED 13:42
PROVIDERS: ADMIT Internal Medicine; ATTEND Internal Medicine
DX: I16.0 Hypertensive urgency (principal); I67.4 Hypertensive encephalopathy; I10 Essential (primary) hypertension; E78.5 Hyperlipidemia, unspecified; Z82.49 Family history of ischemic heart disease and other diseases of the circulatory system; Z79.899 Other long term (current) drug therapy; Z79.82 Long term (current) use of aspirin